=== PATIENT | male | born 1980 | race Caucasian/White ===

== ENCOUNTER → 2018-06-08 | Outpatient (CLI) | payer OTHER ==
--- NOTE | 2018-06-08 08:35 | REP ---
Bilateral carotid artery duplex ultrasound: Peak flow velocity analysis: RIGHT LEFT ICA Peak flow velocity cm/sec 60.3 58.5 ICA Diastolic flow velocity cm/sec 29.30 27.0 ICA/CCA Ratio 0.7 0.9 ECA Peak flow velocity cm/sec 94.6 75.4 CCA Peak flow velocity cm/sec 85.5 62.5 There is no identifiable atheromatous plaque on the right or the left. Peak flow velocities are normal bilaterally. There is antegrade flow in the vertebral arteries bilaterally. Impression: No stenosis on the right or the left. Electronically Signed by Rodrigo Harper MD 06/08/2018 08:27 A
== END ==
LOC: M RAD 06:37
PROVIDERS: ATTEND Nurse Practitioner
DX: R20.0 Anesthesia of skin (principal)

== ENCOUNTER → 2018-09-13 | Outpatient (CLI) | payer OTHER ==
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
== END ==
LOC: M PAIN 11:45
PROVIDERS: ATTEND Anesthesiology
DX: M79.18 Myalgia, other site (principal); M96.1 Postlaminectomy syndrome, not elsewhere classified; G43.909 Migraine, unspecified, not intractable, without status migrainosus; G47.33 Obstructive sleep apnea (adult) (pediatric); F17.220 Nicotine dependence, chewing tobacco, uncomplicated; K21.9 Gastro-esophageal reflux disease without esophagitis; E66.01 Morbid (severe) obesity due to excess calories; Z68.41 Body mass index [BMI] 40.0-44.9, adult; Z79.899 Other long term (current) drug therapy; Z87.820 Personal history of traumatic brain injury; Z91.041 Radiographic dye allergy status

== ENCOUNTER → 2018-09-14 | Outpatient (CLI) | payer OTHER ==
[~2018-09-14] MED LIST: PROHANCE 279.3MG/ML 15ML VIAL (A9576) As Ordered ONE; PROHANCE 279.3MG/ML 5ML VIAL (A9576) As Ordered ONE
--- NOTE | 2018-09-14 14:06 | REP ---
MRI LUMBAR SPINE WITHOUT AND WITH CONTRAST: HISTORY: Back pain. CONTRAST: ProHance 20 mL. Decreased signal intensity on T2-weighted images is present in the L1-2, L4-5 and L5-S1 intervertebral discs. The discs are decreased in height. These findings are consistent with disc degeneration. A diffuse disc bulge is present at the L1-2 level. There is minimal compression of the thecal sac. The L1 nerves exit the neural foramina without compression. There is no disc bulge or herniation at the L2-3 and L3-4 levels. There is hypertrophy of the posterior articulating facets at the L3-4 level. The nerves exit the neural foramina without compression. The patient is status L4 to S1 anterior and posterior spinal fusion and L4-5 laminectomy. The spinal canal, neural foramina and neural arch are partially obscured by metal artifact. A diffuse disc bulge is present at the L4-5 level. This abuts the thecal sac. The L4 nerves exit the neural foramina without compression. There is no disc bulge or herniation at the L5-S1 level. There are 4 mm of grade 1 spondylolisthesis of L5 on S1. The L5 nerves exit the neural foramina without compression. The conus medullaris is normal in appearance terminating at the level of the T12-L1 intervertebral disc. A hemangioma is present in the L3 vertebral body. Increased signal intensity on T2-weighted images is present in the endplates of the L4 and L5 vertebral bodies. This represents degenerative change. IMPRESSION: 1. Diffuse disc bulge at the L1-2 level with minimal thecal sac compression. 2. The patient is status post L4 to S1 anterior and posterior spinal fusion and L4-5 laminectomy. There is grade 1 spondylolisthesis of L5 on S1. Electronically Signed by Juan Matson MD 09/14/2018 02:08 P
== END ==
LOC: M RAD 12:12
PROVIDERS: ATTEND Anesthesiology
DX: M51.26 Other intervertebral disc displacement, lumbar region (principal); M43.17 Spondylolisthesis, lumbosacral region; M96.1 Postlaminectomy syndrome, not elsewhere classified
CPT/HCPCS: 72158; A9576

== ENCOUNTER → 2018-09-21 | Outpatient (CLI) | payer OTHER ==
[~2018-09-21] MED LIST changes: +BUPIVACAINE HCL 0.25% 10 ML VIAL As Ordered ONE; +BUPIVACAINE HCL 0.25% 30 ML VIAL As Ordered ONE; -PROHANCE 279.3MG/ML 15ML VIAL (A9576) As Ordered ONE; -PROHANCE 279.3MG/ML 5ML VIAL (A9576) As Ordered ONE; +TRIAMCINOLONE ACETONIDE SUSP 40 MG/ML VIAL (J3301) As Ordered ONE
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
== END ==
LOC: M PAIN 13:15
PROVIDERS: ATTEND Anesthesiology
DX: M79.18 Myalgia, other site (principal); M51.26 Other intervertebral disc displacement, lumbar region; M47.816 Spondylosis without myelopathy or radiculopathy, lumbar region; G43.909 Migraine, unspecified, not intractable, without status migrainosus; G47.33 Obstructive sleep apnea (adult) (pediatric); Z79.899 Other long term (current) drug therapy; Z88.8 Allergy status to other drugs, medicaments and biological substances
CPT/HCPCS: 20552; J3301

== ENCOUNTER → 2018-11-26 | Outpatient (CLI) | payer OTHER ==
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
== END ==
LOC: M PAIN 13:00
PROVIDERS: ATTEND Family Medicine
DX: M96.1 Postlaminectomy syndrome, not elsewhere classified (principal); M51.36 Other intervertebral disc degeneration, lumbar region; M47.816 Spondylosis without myelopathy or radiculopathy, lumbar region; G43.909 Migraine, unspecified, not intractable, without status migrainosus; G47.33 Obstructive sleep apnea (adult) (pediatric); Z90.49 Acquired absence of other specified parts of digestive tract; F17.220 Nicotine dependence, chewing tobacco, uncomplicated; Z79.1 Long term (current) use of non-steroidal anti-inflammatories (NSAID); Z79.899 Other long term (current) drug therapy; Z88.8 Allergy status to other drugs, medicaments and biological substances

== ENCOUNTER → 2019-01-20 | Outpatient (CLI) | payer OTHER ==
[~2019-01-20] MED LIST changes: -BUPIVACAINE HCL 0.25% 10 ML VIAL As Ordered ONE; -BUPIVACAINE HCL 0.25% 30 ML VIAL As Ordered ONE; +ISOVUE-M 300 61% 15ML VIAL (Q9967) As Ordered ONE; +LIDOCAINE 1% SDV INJ 30 ML VIAL As Ordered ONE; -TRIAMCINOLONE ACETONIDE SUSP 40 MG/ML VIAL (J3301) As Ordered ONE; +diazePAM 5 MG TAB As Ordered ONE; +methylPREDNISolone SUSP 40 MG/ML (DEPO-medrol) VIAL (J1030) As Ordered ONE; +oxyCODONE 5MG TAB As Ordered ONE
--- NOTE | 2019-01-20 10:40 | REP ---
C-ARM VIEW SACRUM AND COCCYX: CLINICAL HISTORY: Pain. A lateral C-arm view of sacrum and coccyx performed during injection by Dr. Chung. Needle is seen at the posterior aspect of the coccyx. 7 seconds fluoroscopy time utilized. Electronically Signed by Rodrigo Anthony MD 01/20/2019 01:33 P
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
== END ==
LOC: M PAIN 08:45
PROVIDERS: ATTEND Anesthesiology
DX: M96.1 Postlaminectomy syndrome, not elsewhere classified (principal); M51.26 Other intervertebral disc displacement, lumbar region; G43.909 Migraine, unspecified, not intractable, without status migrainosus; G47.33 Obstructive sleep apnea (adult) (pediatric); F17.220 Nicotine dependence, chewing tobacco, uncomplicated; Z79.1 Long term (current) use of non-steroidal anti-inflammatories (NSAID); Z79.899 Other long term (current) drug therapy; Z91.041 Radiographic dye allergy status
CPT/HCPCS: 62323; J1030; Q9967

== ENCOUNTER → 2019-02-08 | Outpatient (CLI) | payer OTHER | LOC: M PAIN 13:45 | PROVIDERS: ATTEND Family Medicine | DX: M96.1 Postlaminectomy syndrome, not elsewhere classified (principal); G43.909 Migraine, unspecified, not intractable, without status migrainosus; G47.33 Obstructive sleep apnea (adult) (pediatric); F17.220 Nicotine dependence, chewing tobacco, uncomplicated; Z91.041 Radiographic dye allergy status; E66.01 Morbid (severe) obesity due to excess calories; Z68.41 Body mass index [BMI] 40.0-44.9, adult; Z79.899 Other long term (current) drug therapy ==

== ENCOUNTER → 2019-04-13 | Outpatient (CLI) | payer OTHER ==
[~2019-04-13] MED LIST changes: +diphenhydrAMINE 25 MG CAP As Ordered ONE
--- NOTE | 2019-04-13 13:37 | REP ---
Partial sacrum and coccyx: Five views. History: Caudal epidural steroid injection for pain. 2 minutes 19 seconds of fluoroscopy time is reported. Findings: A sequence of five last image hold fluoroscopically obtained spot radiographs of the sacrum and coccyx document needle and catheter position and contrast injection associated with injection procedure. Electronically Signed by Davi Akers MD 04/13/2019 01:29 P
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
== END ==
LOC: M PAIN 09:30
PROVIDERS: ATTEND Anesthesiology
DX: M51.17 Intervertebral disc disorders with radiculopathy, lumbosacral region (principal); M96.1 Postlaminectomy syndrome, not elsewhere classified; G43.909 Migraine, unspecified, not intractable, without status migrainosus; G47.33 Obstructive sleep apnea (adult) (pediatric); K21.9 Gastro-esophageal reflux disease without esophagitis; Z87.891 Personal history of nicotine dependence; Z91.041 Radiographic dye allergy status; Z79.899 Other long term (current) drug therapy
CPT/HCPCS: 62323; J1030; Q9967

== ENCOUNTER → 2019-05-09 | Outpatient (CLI) | payer OTHER ==
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
== END ==
LOC: M PAIN 14:15
PROVIDERS: ATTEND Family Medicine
DX: M51.17 Intervertebral disc disorders with radiculopathy, lumbosacral region (principal)

== ENCOUNTER → 2019-06-10 | Outpatient (CLI) | payer OTHER ==
--- NOTE | 2019-06-10 13:43 | REPVR ---
PROCEDURE INFORMATION: Exam: CT Lumbar Spine Without Contrast Exam date and time: 06/10/2019 1:25 PM Age: 38 years old Clinical indication: Condition or disease; Spondylolisthesis; Lumbar region; Prior surgery; Surgery date: 6+ months; Surgery type: Rods and cages; Additional info: Spondylolthesis TECHNIQUE: Imaging protocol: Computed tomography images of the lumbar spine without contrast. Radiation optimization: All CT scans at this facility use at least one of these dose optimization techniques: automated exposure control; mA and/or kV adjustment per patient size (includes targeted exams where dose is matched to clinical indication); or iterative reconstruction. COMPARISON: MRI-LS SPINE W/O FOLL WITH CON 09/14/2018 12:47 PM FINDINGS: Vertebrae: There is pedicle screw fixation from L4 through S1 for stabilization of L5 spondylolysis. There is posterior unroofing of L5. Disc spacers are stable. There is no obvious interval change from the comparison MRI. There is no evidence of acute fracture. Discs/Spinal canal/Neural foramina: See Vertebrae Finding. Soft tissues: Limitation: Bone reconstruction technique limits the assessment of soft tissues. IMPRESSION: 1. There is pedicle screw fixation from L4 through S1 for stabilization of L5 spondylolysis. There is posterior unroofing of L5. Disc spacers are stable. There is no obvious interval change from the comparison MRI. 2. There is no evidence of acute fracture. Electronically signed by: Jeff Begum On 06/10/2019 13:43:57 PM
== END ==
LOC: M RAD 13:03
PROVIDERS: ATTEND Physician Assistant
DX: M43.10 Spondylolisthesis, site unspecified (principal)

== ENCOUNTER → 2019-07-07 | Outpatient (CLI) | payer OTHER ==
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
== END ==
LOC: M PAIN 14:15
PROVIDERS: ATTEND Family Medicine
DX: M51.17 Intervertebral disc disorders with radiculopathy, lumbosacral region (principal); Z79.899 Other long term (current) drug therapy; Z87.891 Personal history of nicotine dependence; Z91.041 Radiographic dye allergy status

== ENCOUNTER → 2019-07-12 | Outpatient (CLI) | payer OTHER ==
--- NOTE | 2019-07-12 15:36 | REP ---
THREE-PHASE BONE SCAN OF THE LOWER EXTREMITIES. HISTORY: Bilateral lower leg pain. History of previous stress fracture. No comparison study. TECHNIQUE: 22.0 mCi of technetium 99m MDP is injected and standard three-phase imaging is acquired. SCINTIGRAPHIC FINDINGS: The anterior and posterior flow study is normal. Blood pool images show normal symmetric uptake in the soft tissues of the calves bilaterally. Delayed scan images show no evidence of focal or asymmetric increased uptake in either tibia or fibula to suggest stress phenomenon. IMPRESSION: Negative three-phase bone scan of the lower extremities. Electronically Signed by Davi Akers MD 07/12/2019 04:29 P
== END ==
LOC: M RAD 11:01
PROVIDERS: ATTEND Physician Assistant
DX: M79.662 Pain in left lower leg (principal)